=== PATIENT | male | born 1995 | race Caucasian/White ===

== ENCOUNTER 2024-03-28 10:59 | Day surgery (SDC) | payer OTHER ==
[~2024-03-28] VITALS: Ht 175.3 cm; Wt 88.9 kg
[2024-03-28] MEDS ORDERED: MIDAZOLAM 2 MG/2 ML VIAL ONE (13:04)
[2024-03-28] MEDS ORDERED: fentaNYL citrate 0.05 MG/ML VIAL ONE (13:04)
[2024-03-28] MEDS ORDERED: ACETAMINOPHEN 100 ML IV ONE (13:08)
[2024-03-28] MEDS ORDERED: PROPOFOL 200 MG/20 ML VIAL IV ONE (13:11)
[2024-03-28] MEDS ORDERED: ROCURONIUM 50 MG/5 ML VIAL IV ONE (13:11)
[2024-03-28] MEDS ORDERED: SUCCINYLCHOLINE CHLORIDE 200 MG/10 ML VIAL IVP ONE (13:11)
[2024-03-28] MEDS ORDERED: DEXAMETHASONE 4 MG/ML VIAL ONE ×2 (13:21)
[2024-03-28] MEDS ORDERED: ONDANSETRON 4 MG/2 ML VIAL ONE (13:21)
[2024-03-28] MEDS: ceFAZolin 2,000 MG VIAL ONE (13:50)
[2024-03-28] MEDS: BUPIVACAINE-MPF 0.25% 30 ML VIAL INJ ONE (13:50)
[2024-03-28] MEDS: LIDOCAINE/EPI 1% 1:100000 20 ML VIAL INJ ONE (13:50)
[2024-03-28] MEDS ORDERED: NEOSTIGMINE 1:1000 10 MG/10 ML VIAL ONE (14:13)
[2024-03-28] MEDS ORDERED: GLYCOPYRROLATE 0.2 MG/ML VIAL ONE ×3 (14:13)
[2024-03-28] MEDS ORDERED: diphenhydrAMINE 50 MG/ML VIAL IVP PRN (14:40)
[2024-03-28] MEDS ORDERED: ONDANSETRON 4 MG/2 ML VIAL IVP PRN (14:40)
[2024-03-28] MEDS ORDERED: HYDROmorphone PFS 2 MG/ML SYR ONE (14:54)
[2024-03-28] MEDS: HYDROmorphone 1 MG/ML AMP IVP PRN (14:57)
== END 2024-03-28 16:20 | disposition home or self-care (01) ==
LOC: MDS 10:59 → MMU 11:00 → MDS 16:20
PROVIDERS: ATTEND Surgery
DX: K82.4 Cholesterolosis of gallbladder (principal); Z83.3 Family history of diabetes mellitus; Z98.890 Other specified postprocedural states; Z79.899 Other long term (current) drug therapy
CPT/HCPCS: 47562; 71045; 88304; J0330; J1100; J1170; J2001; J2250; J2405; J2704; J2710; J3010; J3490; J7030